=== PATIENT | female | born 1970 | race Caucasian/White ===

== ENCOUNTER 2016-09-20 01:36 | Emergency (ER) | payer BC ==
[~2016-09-20 01:36] MED LIST: ATEN25 PO; BELSOMRA PO; CENTRUM PO; FLECAINIDE50 MG PO; ROXICODONE15 MG PO; ULTRAM50 PO
[2016-09-20 02:29] LABS: BASOPHILS 0.5 %; BASOPHILS ABSOLUTE 0.04 10/3/uL (0.0-0.16); EOSINOPHILS ABSOLUTE 0.25 10/3/uL (0.0-0.53); HEMOGLOBIN 13.3 g/dL (12.0-16.0); IMMATURE GRANULOCYTES 0.2 %; LYMPHOCYTES 43.5 %; MEAN CORPUS HGB CONC 33.8 g/dL (32.0-36.0); MEAN CORPUSCULAR HEMOGLOB 31.8 pg (26.0-34.0); MEAN PLATELET VOLUME 9.9 fL (9.2-13.0); MONOCYTES 6.9 %; MONOCYTES ABSOLUTE 0.57 10/3/uL (0.21-1.20); NEUTROPHILS 45.9 %; PLATELET COUNT 266 10/3/uL (150-400); RBC DISTRIBUTION WIDTH 12.8 % (12.0-16.0); RED CELL COUNT 4.18 10/6/uL (4.0-5.6); WHITE BLOOD CELLS 8.3 10/3/uL (4.5-10.5)
[2016-09-20 02:35] LABS: ER CBC TAT 0 Hrs 50 Mins; HEMATOCRIT 39.3 % (36.0-48.0); MANUAL DIFF NO %
[2016-09-20 02:36] LABS: IMMATURE GRANULOCYTES ABSOLUTE 0.02 10/3/uL (0.0-0.11)
[2016-09-20 02:37] LABS: INTERNATIONAL NORMAL RATI 1.1 UNITS (-); PARTIAL THROMBO TIME 29.1 SEC (22.5-37.2); PROTIME (NOT ORD) 13.6 SEC (12.0-14.5)
[2016-09-20 02:45] LABS: BUN (BLOOD UREA NITROGEN) 17 MG/DL (6-23); CALCIUM, SERUM 8.7 MG/DL (8.5-10.4); CHLORIDE, SERUM 108 MMOL/L (96-112); CO2 (CARBON DIOXIDE) 26 MMOL/L (24-34); CREATININE 0.89 MG/DL (0.55-1.02); GFR AFRICAN AMERICAN 91 ML/MIN (>=60); GFR NON AFRICAN AMERICAN 79 ML/MIN (>=60); GLUCOSE, SERUM 102 MG/DL (60-99); TROPONIN I <0.02 NG/ML (<0.05)
[2016-09-20 02:47] LABS: POTASSIUM, SERUM 3.3 MMOL/L (3.5-5.3); SODIUM, SERUM 145 MMOL/L (135-148)
[2016-09-20 02:48] LABS: CHEST PAIN PROFILE TAT 1 Hrs 06 Mins
[2016-09-20 03:09] LABS: BAND NEUTROPHILS 3 %; BASOPHILS 1 %; BASOPHILS ABSOLUTE (CALC) 0.08 10/3/uL (0.0-0.16); EOSINOPHILS 2 %; EOSINOPHILS ABSOLUTE (CALC) 0.17 10/3/uL (0.0-0.53); ER DIFF TAT 1 Hrs 30 Mins; IMMATURE GRANS ABSOLUTE (CALC) 0.17 10/3/uL (0.0-0.11); LYMPHOCYTES 43 %; LYMPHOCYTES ABSOLUTE (CALC) 3.57 10/3/uL (0.67-4.30); METAMYELOCYTES 2 %; NEUTROPHILS ABSOLUTE (CALC) 4.32 10/3/uL (2.02-8.40); SEGMENTED NEUTROPHIL (0) 49 %; TOTAL NUCLEATED CELLS 100
[2016-09-20 03:10] LABS: PLATELET ESTIMATE ADQ (ADEQUATE); RBC MORPHOLOGY NORM (NORMAL)
[2016-09-22] MEDS ORDERED: X5 PO (04:27)
[2016-11-25] MEDS ORDERED: ATEN25 PO (11:38)
[2016-12-31] MEDS ORDERED: ZYRTEC ALLGY10 MG PO (06:26)
== END 2016-09-21 02:00 | disposition left against medical advice (07) ==
LOC: ER 01:36
PROVIDERS: Hospitalist
DX: I49.9 Cardiac arrhythmia, unspecified (principal); Z53.21 Procedure and treatment not carried out due to patient leaving prior to being seen by health care provider
CPT/HCPCS: 80048; 83735; 84484; 85025; 85610; 85730; 93005

== ENCOUNTER 2016-09-22 03:48 | Observation (INO) | payer BC, SELFPAY ==
--- NOTE | ~2016-09-22 | HP ---
History And Physical [id number] [facility] [place]. [address] NAME: EVARISTO SANDHU : 72 STATUS : DIS Russ PAT#: [id number] AGE: 45 ADM/REG DATE : 09/22/16 MR#: [id number] REPORT SERV DATE: 09/23/16 DICTATED BY: CARMELITA HOFFMAN DATE: 09/23/16 REPORT STATUS : Draft TRANSCRIBED BY: MODFrancia DATE: 09/23/16 DATE OF ADMISSION: 09/22/2016 INDICATION: Palpitations/ventricular tachycardia, hypokalemia. HISTORY OF PRESENT ILLNESS: The patient is a 45-year-old white female with a history of palpitations and previously noted PVCs and PACs. She presented in August of 2015 with nonsustained ventricular tachycardia and underwent ablated therapy with Dr. Hawk. 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 She had no further recurrence of symptoms. For the past two months, she has been backpacking in [facility]. During her hike, she noted patterns of trigeminy. She states that she had not taken her potassium tablets with her during that hike. She had been trying to self treat herself with a low dose of atenolol and some Xanax. In addition, she has a history of postural orthostatic hypotension (POTS syndrome). She also has undergone previous slow pathway ablation 08/11/2007. She had ablation of RVOT, PVC, 08/19/[address] Santiago (posterior septal RVOT, high septal PVCs). There was repeat ablation of the slow pathway. The patient had been on flecainide prior to the ablation, and this was discontinued subsequently. She was scheduled to undergo an evaluation by the [facility], back in 2007. Unfortunately, do not have any records of that evaluation in our EMR. Additionally, she underwent a fairly extensive neurologic evaluation for lower extremity paresthesias and pain including neural biopsies and muscle biopsies. Again, I do not have any of that data in our EMR. There is a note from [facility], 07/13/2012 by Charlie Scott. At that time, she was referred for primarily thigh, leg, and back pain. She had been at that time on Cymbalta, oxycodone, and meloxicam. It was recommended that she consider a trial of topiramate. At that time, she noted a burning quality of pain in her legs, and history states that she has tried gabapentin, pregabalin as well as the Ultram, Xanax, Paxil, fentanyl, and Lidoderm patches. Reports from a nerve biopsy in 2011 showed no large or small fiber neuropathy. MRI of the spine from 01/2012 showed no cord abnormality either or central or foraminal stenosis. Based on the above evaluation she had B12, TSH, celiac panel, and a CPK, calcium and phosphate as well as some other immunologic studies performed. She had an EMG and nerve conduction study, which showed no polyneuropathy, mononeuropathy, or radiculopathy. There were no demyelinating lesions on her MR. Those records are presently in the external file, dated 08/11/2012. At her last cardiac evaluation, she was noted to have moderate impairment of her LV function with an EF of 45% as well as moderate RV impairment (10/01/2015). She brings in recordings to the hospital with her today that show multiple forms of PVCs. History And Physical [address] [address] NAME: EVARISTO SANDHU : 72 STATUS : DIS Russ PAT#: [id number] AGE: 45 ADM/REG DATE : 09/22/16 MR#: [id number] REPORT SERV DATE: 09/23/16 DICTATED BY: CARMELITA HOFFMAN DATE: 09/23/16 REPORT STATUS : Draft TRANSCRIBED BY: FLORA DATE: 09/23/16 All of these raise the specter of some form of cardiomyopathy possibly one of the dysplastic syndromes. Since her admission, she has been asymptomatic. Her potassium has been replaced, and there have been no PVCs on her monitor. A classic progression of symptoms usually start with lower extremity pain which is a burning fire pain with cramping. She uses oxycodone for pain control and has to use this most of the days that can be followed subsequently by tightness in her chest, followed by eruption of her arrhythmias. CURRENT HOME MEDICATIONS: Atenolol 12.5 per day, oxycodone 7.5/325 p.r.n., potassium 10 mEq daily, Ultram 50 q.6 hours p.r.n., calcium by mouth, and Belsomra 10 mg within 30 minutes of bedtime. ALLERGIES OR INTOLERANCE: Dronedarone, ibuprofen, ivabradine. SOCIAL HISTORY: Former smoker. 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 She is planning on traveling to go backpacking in the [facility] for months beginning in September. She is and does have children. She in fact is in town for her daughter's baby shower. FAMILY HISTORY: Father was adopted. No arrhythmias or sudden on her mother's side that she is aware of. PAST MEDICAL HISTORY/REVIEW OF SYSTEMS: Tubal ligation in 1994, previous cystoscopy for recurrent urinary tract infections, breast augmentation in 2003, posterior oropharyngeal papilloma surgery in 2006. PHYSICAL EXAMINATION: GENERAL: A 45-year-old female. VITAL SIGNS: Blood pressure 98/51, pulse 87, respirations 18. SKIN: No xanthelasmas. HEENT: She is normocephalic. There is no pallor. Sclerae white. NECK: JVD is not elevated. No carotid bruits. CHEST: No crackles. CARDIAC: S1 normal, S2 is physiologic. ABDOMEN: Soft. EXTREMITIES: Without edema. No clubbing. NEUROLOGIC: No focal deficits. LABORATORY DATA: Initial admitting potassium 3.3, BUN 10, creatinine 0.7, magnesium on admission 1.9. White count 8.3, hemoglobin 13.3, platelets 266,000. A.m. cortisol 23.3. ACTH is pending. 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 [address] NAME: EVARISTO SANDHU : 72 STATUS : DIS Russ PAT#: [id number] AGE: 45 ADM/REG DATE : 09/22/16 MR#: [id number] REPORT SERV DATE: 09/23/16 DICTATED BY: CARMELITA HOFFMAN DATE: 09/23/16 REPORT STATUS : Draft TRANSCRIBED BY: MODFrancia DATE: 09/23/16 underlying hyperkalemia, but I am concerned about underlying cardiomyopathy. We will plan on a cardiac MRI. Consider evaluation by Dr. Edmond in Neurology as it has been over a year since her neurologic symptoms have been evaluated. Further recommendations forthcoming. MEHDI/MODL Carmelita Hoffman M.D. / [id number] CC: Radha Romero [facility]
[2016-09-22] MEDS ORDERED: X5 PO (04:27)
[2016-09-22 05:56] LABS: CALCIUM, SERUM 8.8 MG/DL (8.5-10.4); CHLORIDE, SERUM 108 MMOL/L (96-112); CO2 (CARBON DIOXIDE) 24 MMOL/L (24-34); GFR AFRICAN AMERICAN 128 ML/MIN (>=60); GFR NON AFRICAN AMERICAN 111 ML/MIN (>=60); GLUCOSE, SERUM 89 MG/DL (60-99); POTASSIUM, SERUM 3.6 MMOL/L (3.5-5.3); SODIUM, SERUM 141 MMOL/L (135-148)
[2016-09-22 06:03] LABS: BUN (BLOOD UREA NITROGEN) 13 MG/DL (6-23)
[2016-09-22 17:07] LABS: BUN (BLOOD UREA NITROGEN) 13 MG/DL (6-23); CALCIUM, SERUM 8.6 MG/DL (8.5-10.4); CHLORIDE, SERUM 106 MMOL/L (96-112); CO2 (CARBON DIOXIDE) 28 MMOL/L (24-34); CREATININE 0.68 MG/DL (0.55-1.02); GFR AFRICAN AMERICAN 123 ML/MIN (>=60); GFR NON AFRICAN AMERICAN 106 ML/MIN (>=60); GLUCOSE, SERUM 97 MG/DL (60-99); POTASSIUM, SERUM 4.4 MMOL/L (3.5-5.3); SODIUM, SERUM 140 MMOL/L (135-148)
[2016-09-23 06:46] LABS: BUN (BLOOD UREA NITROGEN) 10 MG/DL (6-23); CALCIUM, SERUM 8.9 MG/DL (8.5-10.4); CHLORIDE, SERUM 108 MMOL/L (96-112); CO2 (CARBON DIOXIDE) 25 MMOL/L (24-34); GFR AFRICAN AMERICAN 122 ML/MIN (>=60); GFR NON AFRICAN AMERICAN 105 ML/MIN (>=60); GLUCOSE, SERUM 96 MG/DL (60-99); POTASSIUM, SERUM 3.9 MMOL/L (3.5-5.3); SODIUM, SERUM 140 MMOL/L (135-148)
[2016-09-23] MEDS ORDERED: KLOR-CON M2020 MEQ PO (08:33)
[2016-09-23] MEDS ORDERED: FLECAINIDE50 MG PO (08:33)
[2016-09-23] MEDS ORDERED: MAGOX4 PO (08:34)
[2016-11-25] MEDS ORDERED: ATEN25 PO (11:38)
[2016-12-31] MEDS ORDERED: ZYRTEC ALLGY10 MG PO (06:26)
== END 2016-09-23 10:37 | disposition home or self-care (01) ==
LOC: 5NO 03:48
PROVIDERS: Internal Medicine Cardiovascular Disease; Internal Medicine Clinical Cardiac Electrophysiology
DX: I49.3 Ventricular premature depolarization (principal); E87.6 Hypokalemia; I47.1 Supraventricular tachycardia; Z88.5 Allergy status to narcotic agent; Z88.6 Allergy status to analgesic agent; Z98.51 Tubal ligation status; Z98.890 Other specified postprocedural states
CPT/HCPCS: 80048; 82024; 82533; 83735; 84443; 93005; A9270-GY; G0378

== ENCOUNTER 2016-12-16 02:21 | Emergency (ER) | payer BC, OTHER ==
[~2016-12-16 02:21] MED LIST changes: +KLOR-CON M2020 MEQ PO; +MAGOX4 PO; +X5 PO
[2016-12-16 02:49] LABS: BASOPHILS 0.1 %; BASOPHILS ABSOLUTE 0.01 10/3/uL (0.0-0.16); EOSINOPHILS 1.8 %; EOSINOPHILS ABSOLUTE 0.12 10/3/uL (0.0-0.53); ER CBC TAT 0 Hrs 05 Mins; HEMOGLOBIN 13.1 g/dL (12.0-16.0); IMMATURE GRANULOCYTES 0.3 %; IMMATURE GRANULOCYTES ABSOLUTE 0.02 10/3/uL (0.0-0.11); LYMPHOCYTES 31.8 %; LYMPHOCYTES ABSOLUTE 2.15 10/3/uL (0.67-4.30); MEAN CORPUS HGB CONC 34.5 g/dL (32.0-36.0); MEAN CORPUSCULAR HEMOGLOB 31.5 pg (26.0-34.0); MEAN CORPUSCULAR VOLUME 91.3 fL (80-100); MEAN PLATELET VOLUME 9.7 fL (9.2-13.0); MONOCYTES 7.1 %; MONOCYTES ABSOLUTE 0.48 10/3/uL (0.21-1.20); NEUTROPHILS 58.9 %; NEUTROPHILS ABSOLUTE 3.99 10/3/uL (2.02-8.40); PLATELET COUNT 248 10/3/uL (150-400); RBC DISTRIBUTION WIDTH 12.9 % (12.0-16.0); RED CELL COUNT 4.16 10/6/uL (4.0-5.6); WHITE BLOOD CELLS 6.8 10/3/uL (4.5-10.5)
[2016-12-16 02:54] LABS: MANUAL DIFF NO %
[2016-12-16 02:57] LABS: PARTIAL THROMBO TIME 25.4 SEC (22.5-37.2); PROTIME (NOT ORD) 12.9 SEC (12.0-14.5)
[2016-12-16 03:09] LABS: CALCIUM, SERUM 9.1 MG/DL (8.5-10.4); CHEST PAIN PROFILE TAT 0 Hrs 25 Mins; CHLORIDE, SERUM 108 MMOL/L (96-112); CO2 (CARBON DIOXIDE) 29 MMOL/L (24-34); CREATININE 0.69 MG/DL (0.55-1.02); GFR AFRICAN AMERICAN 122 ML/MIN (>=60); GFR NON AFRICAN AMERICAN 105 ML/MIN (>=60); GLUCOSE, SERUM 84 MG/DL (60-99); POTASSIUM, SERUM 3.4 MMOL/L (3.5-5.3); SODIUM, SERUM 141 MMOL/L (135-148); TROPONIN I <0.02 NG/ML (<0.05)
[2016-12-16 03:21] LABS: BUN (BLOOD UREA NITROGEN) 14 MG/DL (6-23)
[2016-12-31] MEDS ORDERED: ZYRTEC ALLGY10 MG PO (06:26)
== END 2016-12-16 04:14 | disposition home or self-care (01) ==
LOC: ER 02:21
PROVIDERS: Nurse Practitioner Acute Care
DX: R00.2 Palpitations (principal); Z87.891 Personal history of nicotine dependence; Z98.51 Tubal ligation status; Z79.891 Long term (current) use of opiate analgesic; Z79.899 Other long term (current) drug therapy
CPT/HCPCS: 80048; 83735; 84484; 85025; 85610; 85730; 93005; 99285